=== PATIENT | male | born 1950 | race Caucasian/White ===

== ENCOUNTER 2022-07-26 17:29 | Inpatient (IN) | payer OTHER ==
[~2022-07-26] VITALS: Ht 177.8 cm; Wt 95.7 kg
[~2022-07-26 17:29] MED LIST: GLYB1TAB3 PO; HYDR25TA4 PO; INDA2.5T5 PO; LISI-217 PO; PIOG45TA PO; ROSU5TAB PO; SITA100T11 PO
[2022-07-26 17:37] VITALS: BP_SYST 148
[2022-07-26] MEDS ORDERED: NACL 0.9% 1,000 ML IV ONE (17:45)
[2022-07-26 18:11] LABS: BASOPHILS # (AUTO) 0.1 K/uL (0.0-0.2); BASOPHILS % (AUTO) 0.5 % (0.0-2.0); EOSINOPHILS # (AUTO) 0.8 K/uL (0.0-0.4); EOSINOPHILS % (AUTO) 4.9 % (0.0-4.0); HEMATOCRIT 34.6 % (36-54); HEMOGLOBIN 11.9 g/dL (14.0-18.0); LYMPHOCYTES # (AUTO) 1.2 K/uL (1.0-5.5); LYMPHOCYTES % (AUTO) 7.9 % (20.5-51.5); MEAN CORPUSCULAR HEMOGLOBIN 29 pg (27-31); MEAN CORPUSCULAR HGB CONC 34 % (32-36); MEAN CORPUSCULAR VOLUME 86 fL (79.0-98.0); MONOCYTES % (AUTO) 6.3 % (1.7-9.3); NEUTROPHILS # (AUTO) 12.3 K/uL (1.8-7.7); NEUTROPHILS % (AUTO) 80.4 % (40.0-70.0); PLATELET COUNT (AUTO) 327 K/uL (130-430); RED BLOOD CELL COUNT(AUTO) 4.03 MIL/uL (4.2-6.2); WHITE BLOOD COUNT (AUTO) 15.3 K/uL (4.8-10.8)
[2022-07-26 18:21] LABS: ANION GAP 7 (5-15); CALCIUM 8.7 mg/dL (8.4-11.0); CHLORIDE 93 mmol/L (98-107); CREATININE 0.77 mg/dL (0.55-1.30); GLUCOSE 395 mg/dL (70-99); UREA NITROGEN, BLOOD 19 mg/dL (8-21)
[2022-07-26 18:27] LABS: ALANINE AMINOTRANSFERASE 39 U/L (12-78); ALBUMIN 2.5 g/dL (3.4-4.8); ASPARTATE AMINOTRANSFERASE 23 U/L (10-37); LIPASE 383 U/L (73-393); TOTAL BILIRUBIN 0.6 mg/dL (0.0-1.0)
[2022-07-26] MEDS ORDERED: cefTRIAXone 1 GM in D5W 50 ML IV ONE (19:30)
[2022-07-26 19:35] LABS: BILIRUBIN,URINE NEGATIVE (NEGATIVE); BLOOD, URINE 1+ (NEGATIVE); CLARITY/URINE CLEAR (CLEAR); COLOR,URINE YELLOW (YELLOW); GLUCOSE,URINE 3+ (NEGATIVE); KETONES,URINE TRACE (NEGATIVE); LEUKOCYTE ESTERASE ,URINE NEGATIVE (NEGATIVE); NITRITE, URINE NEGATIVE (NEGATIVE); PH,URINE 6.5 (5.0-8.0); PROTEIN URINE NEGATIVE (NEGATIVE); UROBILINOGEN,URINE 0.2 (0.2-1.0)
[2022-07-26 19:41] LABS: BACTERIA,URINE FEW /HPF (None Seen); MUCUS,URINE None Seen /LPF (None Seen); RBC,URINE 0-3 /HPF (0-3); WBC,URINE NONE SEEN /HPF (0-3)
[2022-07-26] MEDS ORDERED: cefTRIAXone 1 GM VIAL ONE (20:36)
[2022-07-26] MEDS ORDERED: METO25TA6 PO (21:16)
[2022-07-26] MEDS ORDERED: CLOP75TA32 PO (21:16)
[2022-07-26] MEDS ORDERED: NAPR-1169 PO (21:16)
[2022-07-26] MEDS ORDERED: POTA10TA PO (21:16)
[2022-07-26 21:45] VITALS: BP_SYST 165
[2022-07-26] MEDS: NACL 0.9% 1,000 ML IV SCH (22:03)
[2022-07-26 22:27] VITALS: BP_SYST 165
[2022-07-27] MEDS: OXYMETAZOLINE HCL 0.05% NASAL SPRAY NS SCH ×3 (00:30→21:50)
[2022-07-27] MEDS ORDERED: NALOXONE HCL 0.4 MG/ML AMP (NARCAN) IVP PRN (00:30)
[2022-07-27] MEDS: INSULIN REGULAR, HUMAN 100 UNITS/ML, 3 ML VIAL (humuLIN R) SUBCUT PRN ×4 (00:32→17:56)
[2022-07-27] MEDS: HYDROcodone/ACETAMIN 5-325 MG TAB (NORCO/ VICODIN) PO PRN ×2 (00:43→16:44)
[2022-07-27 03:29] VITALS: BP_SYST 165
[2022-07-27] MEDS: NACL 0.9% 1,000 ML IV SCH ×3 (05:40→17:20)
[2022-07-27 08:02] VITALS: BP_SYST 144
[2022-07-27] MEDS: FLUTICASONE PROPIONATE 50 mCg/SPRAY 16 GM NS SCH ×2 (09:00→21:35)
[2022-07-27 10:04] LABS: BASOPHILS % (AUTO) 0.3 % (0.0-2.0); EOSINOPHILS # (AUTO) 1.1 K/uL (0.0-0.4); EOSINOPHILS % (AUTO) 7.8 % (0.0-4.0); HEMATOCRIT 35.8 % (36-54); HEMOGLOBIN 11.8 g/dL (14.0-18.0); MEAN CORPUSCULAR HEMOGLOBIN 29 pg (27-31); MEAN CORPUSCULAR HGB CONC 33 % (32-36); MEAN CORPUSCULAR VOLUME 88 fL (79.0-98.0); MONOCYTES # (AUTO) 1.2 K/uL (0.0-1.0); MONOCYTES % (AUTO) 8.4 % (1.7-9.3); NEUTROPHILS # (AUTO) 10.9 K/uL (1.8-7.7); NEUTROPHILS % (AUTO) 76.5 % (40.0-70.0); PLATELET COUNT (AUTO) 342 K/uL (130-430); RED BLOOD CELL COUNT(AUTO) 4.06 MIL/uL (4.2-6.2); RED CELL DISTRIBUTION WIDTH 14.1 % (9.0-15.0)
[2022-07-27 10:08] LABS: WHITE BLOOD COUNT (AUTO) 14.2 K/uL (4.8-10.8)
[2022-07-27 10:23] LABS: ALANINE AMINOTRANSFERASE 39 U/L (12-78); ALBUMIN 2.2 g/dL (3.4-4.8); ANION GAP 6 (5-15); ASPARTATE AMINOTRANSFERASE 20 U/L (10-37); CALCIUM 8.6 mg/dL (8.4-11.0); CHLORIDE 96 mmol/L (98-107); CREATININE 0.66 mg/dL (0.55-1.30); GLUCOSE 396 mg/dL (70-99); TOTAL BILIRUBIN 0.6 mg/dL (0.0-1.0); UREA NITROGEN, BLOOD 12 mg/dL (8-21)
[2022-07-27 11:25] VITALS: BP_SYST 149
[2022-07-27 15:45] VITALS: BP_SYST 146
[2022-07-27 19:10] VITALS: BP_SYST 129
[2022-07-27] MEDS ORDERED: cefTRIAXone 1 GM VIAL IM SCH (21:00)
[2022-07-27] MEDS ORDERED: cefTRIAXone 1 GM VIAL IV SCH (21:00)
[2022-07-27] MEDS ORDERED: INSULIN GLARGINE 100 UNITS/ML, 10 ML VIAL SUBCUT SCH (21:00)
[2022-07-27] MEDS: METOPROLOL TARTRATE 25 MG TABLET PO SCH (21:35)
[2022-07-27] MEDS: cefTRIAXone 1 GM IVPB PREMIX 50 ML IV SCH (21:42)
[2022-07-28 00:23] VITALS: BP_SYST 146
[2022-07-28] MEDS: INSULIN REGULAR, HUMAN 100 UNITS/ML, 3 ML VIAL (humuLIN R) SUBCUT PRN ×4 (00:24→18:12)
[2022-07-28] MEDS: NACL 0.9% 1,000 ML IV SCH ×3 (04:13→20:50)
[2022-07-28 08:10] LABS: BASOPHILS % (AUTO) 0.3 % (0.0-2.0); EOSINOPHILS # (AUTO) 1.1 K/uL (0.0-0.4); EOSINOPHILS % (AUTO) 10.1 % (0.0-4.0); HEMATOCRIT 36.6 % (36-54); LYMPHOCYTES # (AUTO) 0.4 K/uL (1.0-5.5); LYMPHOCYTES % (AUTO) 3.8 % (20.5-51.5); MEAN CORPUSCULAR HEMOGLOBIN 29 pg (27-31); MEAN CORPUSCULAR HGB CONC 33 % (32-36); MEAN CORPUSCULAR VOLUME 88 fL (79.0-98.0); MONOCYTES # (AUTO) 0.5 K/uL (0.0-1.0); MONOCYTES % (AUTO) 4.6 % (1.7-9.3); NEUTROPHILS # (AUTO) 9.3 K/uL (1.8-7.7); NEUTROPHILS % (AUTO) 81.2 % (40.0-70.0); PLATELET COUNT (AUTO) 335 K/uL (130-430); RED BLOOD CELL COUNT(AUTO) 4.18 MIL/uL (4.2-6.2); RED CELL DISTRIBUTION WIDTH 14.1 % (9.0-15.0); WHITE BLOOD COUNT (AUTO) 11.4 K/uL (4.8-10.8)
[2022-07-28 08:47] VITALS: BP_SYST 144
[2022-07-28] MEDS: FLUTICASONE PROPIONATE 50 mCg/SPRAY 16 GM NS SCH ×2 (09:00→20:52)
[2022-07-28] MEDS: OXYMETAZOLINE HCL 0.05% NASAL SPRAY NS SCH ×2 (09:00→20:52)
[2022-07-28] MEDS: CLOPIDOGREL BISULFATE 75 MG TABLET PO SCH (10:45)
[2022-07-28] MEDS: METOPROLOL TARTRATE 25 MG TABLET PO SCH ×2 (10:46→20:50)
[2022-07-28 11:44] LABS: ALANINE AMINOTRANSFERASE 42 U/L (12-78); ALBUMIN 2.1 g/dL (3.4-4.8); ANION GAP 8 (5-15); ASPARTATE AMINOTRANSFERASE 30 U/L (10-37); CALCIUM 8.5 mg/dL (8.4-11.0); CHLORIDE 95 mmol/L (98-107); CREATININE 0.64 mg/dL (0.55-1.30); GLUCOSE 216 mg/dL (70-99); TOTAL BILIRUBIN 0.4 mg/dL (0.0-1.0); UREA NITROGEN, BLOOD 9 mg/dL (8-21)
[2022-07-28 11:48] VITALS: BP_SYST 117
[2022-07-28 16:49] VITALS: BP_SYST 121
[2022-07-28 20:00] VITALS: BP_SYST 136
[2022-07-28] MEDS ORDERED: INSULIN GLARGINE 100 UNITS/ML, 10 ML VIAL SUBCUT SCH (21:00)
[2022-07-28] MEDS: cefTRIAXone 1 GM IVPB PREMIX 50 ML IV SCH (21:06)
[2022-07-29] MEDS: INSULIN REGULAR, HUMAN 100 UNITS/ML, 3 ML VIAL (humuLIN R) SUBCUT PRN ×3 (00:49→12:47)
[2022-07-29] MEDS: NACL 0.9% 1,000 ML IV SCH (04:00)
[2022-07-29 07:13] LABS: BASOPHILS # (AUTO) 0.1 K/uL (0.0-0.2); EOSINOPHILS # (AUTO) 1.3 K/uL (0.0-0.4); EOSINOPHILS % (AUTO) 19.6 % (0.0-4.0); HEMATOCRIT 33.9 % (36-54); HEMOGLOBIN 11.7 g/dL (14.0-18.0); LYMPHOCYTES # (AUTO) 0.8 K/uL (1.0-5.5); MEAN CORPUSCULAR HEMOGLOBIN 29 pg (27-31); MEAN CORPUSCULAR HGB CONC 34 % (32-36); MEAN CORPUSCULAR VOLUME 85 fL (79.0-98.0); MONOCYTES # (AUTO) 0.6 K/uL (0.0-1.0); MONOCYTES % (AUTO) 9.9 % (1.7-9.3); NEUTROPHILS # (AUTO) 3.7 K/uL (1.8-7.7); NEUTROPHILS % (AUTO) 57.5 % (40.0-70.0); PLATELET COUNT (AUTO) 278 K/uL (130-430); RED BLOOD CELL COUNT(AUTO) 3.97 MIL/uL (4.2-6.2); RED CELL DISTRIBUTION WIDTH 14.2 % (9.0-15.0); WHITE BLOOD COUNT (AUTO) 6.4 K/uL (4.8-10.8)
[2022-07-29 07:27] LABS: ANION GAP 6 (5-15); CHLORIDE 101 mmol/L (98-107); CREATININE 0.73 mg/dL (0.55-1.30); GLUCOSE 231 mg/dL (70-99); UREA NITROGEN, BLOOD 12 mg/dL (8-21)
[2022-07-29 08:00] VITALS: BP_SYST 143
[2022-07-29] MEDS: METOPROLOL TARTRATE 25 MG TABLET PO SCH (09:00)
[2022-07-29] MEDS: FLUTICASONE PROPIONATE 50 mCg/SPRAY 16 GM NS SCH (09:00)
[2022-07-29] MEDS: CLOPIDOGREL BISULFATE 75 MG TABLET PO SCH (09:35)
[2022-07-29] MEDS: OXYMETAZOLINE HCL 0.05% NASAL SPRAY NS SCH (09:36)
[2022-07-29] MEDS: HYDROcodone/ACETAMIN 5-325 MG TAB (NORCO/ VICODIN) PO PRN (09:42)
[2022-07-29] MEDS ORDERED: INSU100V9 SQ ×4 (10:30→15:40)
[2022-07-29] MEDS ORDERED: AMOX500C2 PO (10:56)
[2022-07-29] MEDS ORDERED: METF-379 PO (11:13)
[2022-07-29 13:07] VITALS: BP_SYST 143
== END 2022-07-29 13:30 | disposition home or self-care (01) | DRG 637 ==
LOC: SED 17:29 → SMU 19:59
PROVIDERS: ADMIT Internal Medicine; ATTEND Internal Medicine
PROC: 5A09457 Assistance with Respiratory Ventilation, 24-96 Consecutive Hours, Continuous Positive Airway Pressure (ICD-10-PCS; principal; 2022-07-27)
DX: E11.00 Type 2 diabetes mellitus with hyperosmolarity without nonketotic hyperglycemic-hyperosmolar coma (NKHHC) (principal); E43 Unspecified severe protein-calorie malnutrition; E87.1 Hypo-osmolality and hyponatremia; J06.9 Acute upper respiratory infection, unspecified; E11.65 Type 2 diabetes mellitus with hyperglycemia; E78.5 Hyperlipidemia, unspecified; I10 Essential (primary) hypertension; G47.33 Obstructive sleep apnea (adult) (pediatric); Z20.822 Contact with and (suspected) exposure to COVID-19; J32.8 Other chronic sinusitis; Z68.30 Body mass index [BMI] 30.0-30.9, adult
CPT/HCPCS: 36415; 70450-TC; 71045; 76376; 80048; 80053; 81000; 82962; 83037; 83605; 83690; 84484; 85025; 87040; 93005; 94660; 94760; 96361; 96365; 99285; J0696; J1815